=== PATIENT | male | born 1945 | race Caucasian/White ===

== ENCOUNTER 2020-01-09 11:59 | Day surgery (SDC) | payer BC ==
[2020-01-09] VITALS (7 sets, daily range): BP systolic 106–158; BP diastolic 64–80
[~2020-01-09] VITALS: Ht 185.4 cm; Wt 123.6 kg
[~2020-01-09 11:59] MED LIST: CARV6.253 PO; CITA40TA22 PO; FURO80TA87 PO; GABA-532 PO; GEMF600T89 PO; GLIP5TAB13 PO; LOSA100T57 PO; POTA10TA19 PO; SIMV-42 PO
--- NOTE | 2020-01-09 12:20 | NUR ---
Pt ambulated independently on to unit; oriented to room, including call light use.
[2020-01-09] MEDS ORDERED: normal saline 1000ml 1,000 ML IV SCH (12:30)
[2020-01-09] MEDS ORDERED: midazolam 2 mg/2 ml injection ONE ×2 (12:57→14:36)
[2020-01-09] MEDS ORDERED: fentaNYL/PF 50MCG/1 ML 2ML syringe ONE ×2 (12:57→14:36)
[2020-01-09] MEDS ORDERED: LIDOcaine 1% W/epiNEPHrine 1:100,000 20ml vial ONE (12:57)
[2020-01-09] MEDS ORDERED: ceFAZolin 1000mg inj ONE (12:58)
[2020-01-09] MEDS ORDERED: cefazolin/dext.iso 2gm/100ml 100 ML IV ONE (13:00)
[2020-01-09] MEDS ORDERED: vancomycin/NS 1 GM ADD-VANTAGE 250 ML X 1 DOSE IV ONE (13:00)
--- NOTE | 2020-01-09 13:30 | NUR ---
Pt transported to [facility] via [facility].
[2020-01-09 13:38] LABS: BASOPHILS # (AUTO) 0.1 X10'3 (0-0.2); BASOPHILS % (AUTO) 0.8 % (0-1); EOSINOPHILS # (AUTO) 0.1 X10'3 (0-0.9); EOSINOPHILS % (AUTO) 1.8 % (0-6); HEMATOCRIT 36.7 % (42.0-52.0); HEMOGLOBIN 12.5 g/dl (14.0-17.9); LYMPHOCYTES # (AUTO) 1.6 X10'3 (1.1-4.8); LYMPHOCYTES % (AUTO) 20.4 % (21-51); MEAN CORPUSCULAR HGB CONC 33.9 g/dL (33.0-36.5); MEAN CORPUSCULAR VOLUME 85.4 FL (78-98); MEAN PLATELET VOLUME 9.6 FL (7.4-10.4); MONOCYTES # (AUTO) 0.6 X10'3 (0-0.9); MONOCYTES % (AUTO) 7.7 % (2-12); NEUTROPHILS # (AUTO) 5.4 X10'3 (1.8-7.7); NEUTROPHILS % (AUTO) 69.3 % (42-75); PLATELET COUNT 230 X10'3 (140-440); RED CELL DISTRIBUTION WIDTH 14.7 % (11.5-14.5); WHITE BLOOD COUNT 7.7 X10'3 (4.5-11.0)
[2020-01-09] MEDS ORDERED: FENO160T PO (13:45)
[2020-01-09] MEDS ORDERED: PANT20TA3 PO (13:45)
[2020-01-09] MEDS ORDERED: ASPI-611 PO (13:45)
[2020-01-09] MEDS ORDERED: FURO40TA4 PO (13:45)
[2020-01-09] MEDS ORDERED: HYDR-3686 PO (13:45)
[2020-01-09] MEDS ORDERED: ATOR40TA72 PO (13:45)
[2020-01-09] MEDS ORDERED: SPIR25TA5 PO (13:45)
[2020-01-09] MEDS ORDERED: MONT10TA26 PO (13:45)
[2020-01-09 13:48] LABS: ALBUMIN 3.1 G/DL (3.4-5.0); ANION GAP 11 (8-16); BLOOD UREA NITROGEN 25 MG/DL (7-18); BUN/CREATININE RATIO 12.3 (5.4-32.0); CALCIUM 8.6 MG/DL (8.5-10.1); CHLORIDE 105 MMOL/L (99-107); CREATININE 2.03 MG/DL (0.60-1.10); GLUCOSE 272 MG/DL (70-104); MAGNESIUM 1.5 MG/DL (1.5-2.4); POTASSIUM 4.1 MMOL/L (3.5-5.1); SODIUM 140 MMOL/L (135-145); TOTAL CARBON DIOXIDE 24.2 MMOL/L (24-32); eGFR 32 ML/MIN
[2020-01-09] MEDS ORDERED: METF-438 PO (13:48)
--- NOTE | 2020-01-09 15:30 | NUR ---
Pt returned to room via gurney. PPM site bandage CDI, pt drowsy but easily arousable and in no acute distress.
== END 2020-01-09 17:30 | disposition home or self-care (01) ==
LOC: SSTAY O 11:59
PROVIDERS: ATTEND Internal Medicine Cardiovascular Disease
DX: Z45.02 Encounter for adjustment and management of automatic implantable cardiac defibrillator (principal); Z95.810 Presence of automatic (implantable) cardiac defibrillator; I25.5 Ischemic cardiomyopathy; R60.9 Edema, unspecified; Z95.1 Presence of aortocoronary bypass graft; I25.10 Atherosclerotic heart disease of native coronary artery without angina pectoris; Z87.891 Personal history of nicotine dependence; I27.20 Pulmonary hypertension, unspecified; E11.9 Type 2 diabetes mellitus without complications
CPT/HCPCS: 33263; 36415; 80048; 82948; 83735; 85025; 85610; 93005; C1721; J0690; J2250; J3010; J7030; 99152; 99153; A4620

== ENCOUNTER 2020-09-20 22:26 | Emergency (ER) | payer BC ==
[~2020-09-20] VITALS: Ht 185.4 cm; Wt 118.2 kg
[~2020-09-20 22:26] MED LIST changes: +ASPI-611 PO; +ATOR40TA72 PO; +FENO160T PO; +FURO40TA4 PO; -FURO80TA87 PO; -GEMF600T89 PO; -GLIP5TAB13 PO; +HYDR-3686 PO; +METF-438 PO; +MONT10TA26 PO; +PANT20TA18 PO; -POTA10TA19 PO; +SPIR25TA5 PO
[2020-09-20 23:04] LABS: BASOPHILS # (AUTO) 0.1 X10'3 (0-0.2); BASOPHILS % (AUTO) 0.8 % (0-1); EOSINOPHILS # (AUTO) 0.1 X10'3 (0-0.9); EOSINOPHILS % (AUTO) 1.9 % (0-6); HEMATOCRIT 37.4 % (42.0-52.0); HEMOGLOBIN 12.6 g/dl (14.0-17.9); LYMPHOCYTES # (AUTO) 1.7 X10'3 (1.1-4.8); LYMPHOCYTES % (AUTO) 22.6 % (21-51); MEAN CORPUSCULAR HGB CONC 33.6 g/dL (33.0-36.5); MEAN CORPUSCULAR VOLUME 89.5 FL (78-98); MEAN PLATELET VOLUME 8.7 FL (7.4-10.4); MONOCYTES # (AUTO) 0.6 X10'3 (0-0.9); MONOCYTES % (AUTO) 7.5 % (2-12); NEUTROPHILS # (AUTO) 5.1 X10'3 (1.8-7.7); NEUTROPHILS % (AUTO) 67.2 % (42-75); PLATELET COUNT 253 X10'3 (140-440); RED BLOOD COUNT 4.18 X10'6 (4.70-6.10); RED CELL DISTRIBUTION WIDTH 14.1 % (11.5-14.5); WHITE BLOOD COUNT 7.5 X10'3 (4.5-11.0)
[2020-09-20 23:06] LABS: D-DIMER 0.84 MG/L FEU (0-0.50)
[2020-09-20 23:12] LABS: ALANINE AMINOTRANSFERASE 46 U/L (12-78); ALBUMIN 3.4 G/DL (3.4-5.0); ALBUMIN/GLOBULIN RATIO 0.9 (1.1-1.5); ALKALINE PHOSPHATASE 55 IU/L (46-116); ANION GAP 10 (8-16); ASPARTATE AMINO TRANSFERASE 55 U/L (10-37); BILIRUBIN,TOTAL 0.4 MG/DL (0.1-1.0); BLOOD UREA NITROGEN 26 MG/DL (7-18); BUN/CREATININE RATIO 10.7 (5.4-32.0); CALCIUM 8.3 MG/DL (8.5-10.1); CHLORIDE 106 MMOL/L (99-107); CREATININE 2.43 MG/DL (0.60-1.10); GLUCOSE 158 MG/DL (70-104); POTASSIUM 4.3 MMOL/L (3.5-5.1); SODIUM 141 MMOL/L (135-145); TOTAL CARBON DIOXIDE 25.2 MMOL/L (24-32); TOTAL PROTEIN 7.4 G/DL (6.4-8.2); eGFR 26 ML/MIN
[2020-09-21] MEDS ORDERED: furosemide 10 MG/1 ML 10ml inj IV ONE (02:35)
[2020-09-21] MEDS ORDERED: FURO-150 PO (02:41)
[2020-09-21 02:59] VITALS: BP 169/90
== END 2020-09-21 03:03 | disposition home or self-care (01) ==
LOC: ER 22:26
DX: I50.9 Heart failure, unspecified (principal); E11.9 Type 2 diabetes mellitus without complications; F41.9 Anxiety disorder, unspecified; F32.9 Major depressive disorder, single episode, unspecified; J44.9 Chronic obstructive pulmonary disease, unspecified; Z95.1 Presence of aortocoronary bypass graft; Z79.899 Other long term (current) drug therapy; Z79.82 Long term (current) use of aspirin; Z20.828 Contact with and (suspected) exposure to other viral communicable diseases
CPT/HCPCS: 36415; 71045; 80053; 83880; 84145; 84484; 85025; 85379; 86140; 87635; 93005; 96374; 99285; C9803; J1940

== ENCOUNTER 2020-10-10 12:35 | Emergency (ER) | payer BC ==
[~2020-10-10] VITALS: Ht 185.4 cm; Wt 118.0 kg
[~2020-10-10 12:35] MED LIST changes: +FURO-150 PO; -MONT10TA26 PO; +MONT10TA97 PO
[2020-10-10] MEDS ORDERED: CefTRIAXone/D5W-Rocephin 1gm 50 ML IV ONE (14:10)
--- NOTE | 2020-10-10 15:06 | NUR ---
VASCULAR AT BEDSIDE
[2020-10-10] MEDS ORDERED: DOXY100C76 PO (16:06)
[2020-10-10] MEDS ORDERED: CEPH-572 PO (16:06)
[2020-10-10] MEDS ORDERED: DOXYCYCLINE 100MG CAPSULE PO STA (16:08)
[2020-10-10 16:38] VITALS: BP 141/61
== END 2020-10-10 16:58 | disposition home or self-care (01) ==
LOC: ER 12:35
DX: L03.115 Cellulitis of right lower limb (principal); I25.10 Atherosclerotic heart disease of native coronary artery without angina pectoris; I11.0 Hypertensive heart disease with heart failure; I50.9 Heart failure, unspecified; J44.9 Chronic obstructive pulmonary disease, unspecified; E11.9 Type 2 diabetes mellitus without complications; Z95.0 Presence of cardiac pacemaker; Z95.1 Presence of aortocoronary bypass graft; Z79.82 Long term (current) use of aspirin; Z79.2 Long term (current) use of antibiotics; Z79.899 Other long term (current) drug therapy
CPT/HCPCS: 93971; 96365; 99284; J0696